=== PATIENT | male | born 1985 | race Caucasian/White ===

== ENCOUNTER → 2021-12-29 | Outpatient (REF) | payer OTHER | LOC: M SMT 17:12 | PROVIDERS: ATTEND Urology | DX: Z30.2 Encounter for sterilization (principal) ==

== ENCOUNTER → 2022-02-24 | Outpatient (REF) | payer OTHER ==
[2022-02-24 10:31] LABS: SEMEN APPEARANCE OPAQUE (OPAQUE); SEMEN VISCOSITY LIQUID (LIQUID)
[2022-02-24 10:32] LABS: WBC CONCENTRATION >1 M/ml (<=1 M/ml)
== END ==
LOC: M SMT 10:29
PROVIDERS: ATTEND Urology
DX: Z30.8 Encounter for other contraceptive management (principal)